=== PATIENT | male | born 1990 | race Caucasian/White ===

== ENCOUNTER 2017-08-17 22:51 | Emergency (ER) | payer SELFPAY, OTHER ==
[2017-08-18] MEDS ORDERED: STERILE WATER 1L IRRIG BTL IRR (00:05)
[2017-08-18] MEDS: DIPHTH/TET/ACEL PERTUSS (ADULT) 0.5 ML VIAL IM (00:27)
== END 2017-08-18 01:40 | disposition left against medical advice (07) ==
LOC: FTE 22:51
DX: S60.511A Abrasion of right hand, initial encounter (principal); W25.XXXA Contact with sharp glass, initial encounter; Y92.9 Unspecified place or not applicable
CPT/HCPCS: 90471; 90715; 99283-25